=== PATIENT | male | born 1930 | race Caucasian/White ===

== ENCOUNTER → 2016-08-29 | Day surgery (SDC) | payer OTHER ==
[~2016-08-29] VITALS: Ht 180.3 cm; Wt 78.0 kg
[~2016-08-29] MED LIST: AMPICILLIN500 MG PO; ARICEPT10 M1 PO; ASPIRIN325 MG PO; CENTRUM SILVER1 TA1 PO; CEPHALEXIN500 M1 PO; FUROSEMIDE40 MG PO; HYDR25T PO; KLOR-CON 1010 MEQ PO; LISINOPRIL AND1 TA2 PO; LISINOPRIL HCTZ1 TA1 PO; LISINOPRIL HCTZ1 TAB PO; LISINOPRIL20 MG PO; LOPRESSOR25 MG PO; SIMVASTATIN40 MG PO; STOOL SOFTENER100 M1 PO; SYNTHROID,LEVO50 MCG PO; SYNTHROID0.05 MG PO; Synthroid,Levo50 MCG PO; VITAMIN B122500 MCG SL; VITAMIN C500 M4 PO; [UNRECOGNIZED DRUG - REMARK]
--- NOTE | ~2016-08-29 | WILSON ---
[place], [place] [id number] #: [id number] ROOM: DOCTOR: SULTANA MENENDEZ MD DATE: 08/29/16 PREOPERATIVE DIAGNOSIS: Cataract, right eye. POSTOPERATIVE DIAGNOSIS: Cataract, right eye. OPERATION: Extracapsular cataract extraction by phacoemulsification with posterior chamber intraocular lens implantation, right eye. ANESTHESIA: Monitored standby. OPERATIVE FINDINGS AND PROCEDURE: 2% Xylocaine topical anesthetic gel was applied to the eye in the preop area. The patient was taken to the operating room and prepped and draped in the standard fashion for sterile intraocular surgery. A time out procedure was performed verifying correct patient, correct site and corrects lens with Zev Menendez M.D. The operating microscope was swung into position and the lid speculum was inserted. Using a paracentesis blade, a paracentesis was made through clear cornea. Viscoelastic was used to fill the anterior chamber. Using a metal keratome a 2.4 mm self-sealing clear corneal cataract incision was made temporally at the limbus. Using a pre-bent 25 gauge cystotome needle, a standard continuous curvilinear capsulorrhexis was performed. The anterior capsule was removed with forceps. The lens nucleus was hydrodissected and phacoemulsified in the posterior chamber. Cortical material was removed with the irrigation aspiration hand piece and the posterior capsule was then polished with a curet under irrigation. The posterior chamber and capsular bag were filled with viscoelastic. A posterior chamber intraocular lens manufactured by: Jose Alberto, Model #[id number], and 18.5 diopters in strength was then inserted into the posterior chamber and within the capsular bag using the lens cartridge and injector system. Viscoelastic was removed using the irrigation aspiration handpiece. The anterior chamber was filled with balanced salt solution through the paracentesis. Both the paracentesis site and cataract incisions were hydrated with BSS and verified to be water-tight and self-sealing. Cefuroxime 1 mg/0.1 mL was injected into the anterior chamber through the paracentesis site. The incision checked to be water-tight using a Weck-edu sponge. The integrity of the cataract wound and ocular tension were checked. Lid speculum and drapes were removed. One drop of Ocuflox was applied to the eye. The patient was transferred from the operating room to the recovery room in satisfactory condition. SULTANA CERNA MD CM:OPRECORD:CATARACT EXTRACTION 06 [id number] SULTANA MENENDEZ MD 08/30/16 1220 DAVEY SANTOS.R
[2016-08-29 11:32] VITALS: BP 188/75
[2016-08-29 12:44] VITALS: BP 137/70
[2016-08-29 12:59] VITALS: BP 123/68
[2016-08-29 13:14] VITALS: BP 121/61
== END | disposition home or self-care (01) ==
LOC: SDC 08-24 09:30
DX: H26.9 Unspecified cataract (principal); I25.10 Atherosclerotic heart disease of native coronary artery without angina pectoris; I10 Essential (primary) hypertension; I25.2 Old myocardial infarction; Z95.1 Presence of aortocoronary bypass graft; Z90.49 Acquired absence of other specified parts of digestive tract; E89.0 Postprocedural hypothyroidism; Z82.49 Family history of ischemic heart disease and other diseases of the circulatory system; Z98.890 Other specified postprocedural states

== ENCOUNTER → 2016-09-26 | Day surgery (SDC) | payer OTHER ==
[~2016-09-26] VITALS: Ht 180.3 cm; Wt 78.0 kg
--- NOTE | ~2016-09-26 | O ---
[place], [place] OPERATIVE NOTE NAME: TEODORO CARTER UNIT #: [id number] ROOM: DOCTOR: SULTANA JOHNSON MD BIRTHDATE: [birth year] DOS: 09/26/2016 PREOPERATIVE DIAGNOSIS: Cataract, left eye. POSTOPERATIVE DIAGNOSIS: Cataract, left eye. OPERATION: Extracapsular cataract extraction by phacoemulsification with posterior chamber intraocular lens implantation, left eye. ANESTHESIA: Monitored standby. OPERATIVE FINDINGS AND PROCEDURE: 2% Xylocaine topical anesthetic gel was applied to the eye in the preop area. The patient was taken to the operating room and prepped and draped in the standard fashion for sterile intraocular surgery. A time out procedure was performed verifying correct patient, correct site and corrects lens with Zev Johnson M.D. The operating microscope was swung into position and the lid speculum was inserted. Using a Vanda paracentesis blade, a paracentesis was made through clear cornea. Viscoelastic was used to fill the anterior chamber. Using a metal keratome a 2.4 mm self-sealing clear corneal cataract incision was made temporally at the limbus. Using a pre-bent 25 gauge cystotome needle, a standard continuous curvilinear capsulorrhexis was performed. The anterior capsule was removed with forceps. The lens nucleus was hydrodissected and phacoemulsified in the posterior chamber. Cortical material was removed with the irrigation aspiration hand piece and the posterior capsule was then polished with a curet under irrigation. The posterior chamber and capsular bag were filled with viscoelastic. A posterior chamber intraocular lens manufactured by: Jose Alberto, Model #[id number], and 19.0 diopters in strength were then inserted into the posterior chamber and within the capsular bag using the lens cartridge and injector system. Viscoelastic was removed using the irrigation aspiration handpiece. The anterior chamber was filled with balanced salt solution through the paracentesis. Both the paracentesis site and cataract incisions were hydrated with BSS and verified to be water-tight and self-sealing. Cefuroxime 1 mg/0.1 mL was injected into the anterior chamber through the paracentesis site. The incision checked to be water-tight using a Weck-Heather sponge. The integrity of the cataract wound and ocular tension were checked. Lid speculum and drapes were removed. The patient was transferred from the operating room to the recovery room in satisfactory condition. [place], [place] OPERATIVE NOTE NAME: TEODORO CARTER UNIT #: [id number] ROOM: DOCTOR: SULTANA JOHNSON MD BIRTHDATE: [birth year] SULTANA JOHNSON MD CM:OPRECORD:OPERATIVE NOTE 1350 [id number] SULTANA JOHNSON MD 09/26/16 1458 interface
[2016-09-26 08:45] VITALS: BP 135/71
[2016-09-26 10:19] VITALS: BP 105/61
[2016-09-26 10:34] VITALS: BP 122/68
[2016-09-26 10:49] VITALS: BP 106/63
== END | disposition home or self-care (01) ==
LOC: SDC 09-21 11:00
DX: H26.9 Unspecified cataract (principal); I25.2 Old myocardial infarction; I25.10 Atherosclerotic heart disease of native coronary artery without angina pectoris; I10 Essential (primary) hypertension; Z87.891 Personal history of nicotine dependence; Z95.1 Presence of aortocoronary bypass graft; Z79.899 Other long term (current) drug therapy

== ENCOUNTER → 2017-09-02 | Outpatient (CLI) | payer OTHER | END | disposition home or self-care (01) | LOC: RAD 14:37 | DX: M48.56XA Collapsed vertebra, not elsewhere classified, lumbar region, initial encounter for fracture (principal) ==

== ENCOUNTER 2018-12-27 16:49 | Inpatient (IN) | payer MEDICARE, OTHER ==
[~2018-12-27] VITALS: Ht 175.2 cm; Wt 69.9 kg
[2018-12-27 16:53] VITALS: BP 163/69
[2018-12-27 17:32] LABS: BASO # 0.3 10*3/uL (0.0-0.1); BASO % 3.5 % (0.0-1.0); EOS # 0.1 10*3/uL (0.0-0.4); EOS % 1.5 % (1.0-4.0); HEMATOCRIT 52.8 % (42.0-52.0); HEMOGLOBIN 15.6 g/dl (14.0-18.0); LYMPH # 0.6 10*3/uL (1.3-4.4); LYMPH % 7.5 % (27.0-41.0); MEAN CELL VOLUME 92.6 fl (80.0-94.0); MEAN CORPUSCULAR HGB 27.4 pg (27.0-31.0); MEAN CORPUSCULAR HGB CONC 29.5 g/dl (33.0-37.0); MEAN PLATELET VOLUME 9.1 fl (9.6-12.3); MONO # 0.5 10*3/uL (0.1-1.0); MONO % 5.6 % (3.0-9.0); NEUT # 6.9 10*3/uL (2.3-7.9); NEUT % 80.6 % (47.0-73.0); PLATELET COUNT AUTOMATED 496 10*3/uL (130-400); RED CELL DISTRI WIDTH 28.5 % (0-14.5); WHITE BLOOD COUNT 8.5 10*3/uL (4.8-10.8)
[2018-12-27 17:41] LABS: BILIRUBIN NEGATIVE (NEGATIVE); BLOOD NEGATIVE (NEGATIVE); CLARITY CLEAR (CLEAR); COLOR YELLOW (YELLOW); GLUCOSE NEGATIVE (NEGATIVE); KETONE NEGATIVE (NEGATIVE); LEUKO ESTERASE NEGATIVE (NEGATIVE); NITRITE NEGATIVE (NEGATIVE); PH 5.5 (5.0-9.0); UROBILINOGEN 0.2 E.U./dl (0.2-1.0)
[2018-12-27 17:42] LABS: ACT PARTIAL THROMBO TIME 31.9 SECONDS (20.0-32.1); INTERNATIONAL NORM RATIO 1.1 (2.0-3.5)
[2018-12-27 17:44] LABS: CREATININE 1.37 mg/dL (0.70-1.30)
[2018-12-27 17:48] LABS: EPITHELIAL CELLS 0-2; HYALINE CAST TNTC; WBC 0-2 wbc/hpf (0-5)
[2018-12-27 17:49] LABS: BACTERIA 1+
[2018-12-27 18:00] VITALS: BP 162/70
[2018-12-27 19:10] VITALS: BP 164/68
[2018-12-27 20:07] VITALS: BP 163/68
[2018-12-27 20:47] VITALS: BP 162/68
[2018-12-27 20:55] VITALS: BP 179/74
--- NOTE | 2018-12-27 20:55 | NUR ---
A 88, admitted to , under the services of SAUL Blackburn DO with a diagnosis of TRAUMATIC COMPRESSION FRACTURE OF 10TH THORACIC VERTEBRA, TRAUMATIC COMPRESSION FRACTURE OF 3RD LUMBAR VERTEBRA. Chief complaint is FALL. Patient arrived via bed from ER. Monitor applied. Initial assessment completed. Vital signs taken and recorded. SAUL BLACKBURN DO notified of admission to the unit. Orders received. See assessment for past medical history, medications and allergies. Patient and/or family oriented to unit. [facility] visitation policy reviewed. Clothing/patient valuable form completed. JAQUI KRISHNAN
[2018-12-27] MEDS ORDERED: HYDROXYUREA500 MG PO (21:14)
--- NOTE | 2018-12-27 22:00 | NUR ---
NOTIFIED DR LOPEZ THAT PT MED REC IS UPDATED PER FAMILY AND PATIENT. ALSO NOTIFIED PHYSICIAN THAT PT IS ANXIOUS. ORDER RECEIVED FOR ATIVAN 0.5 MG PO EVERY 6 HOURS NEEDED.
[2018-12-28] VITALS: BP 138/64; BP 154/69
--- NOTE | 2018-12-28 02:30 | NUR ---
PT TRANSFERRED TO AND FROM BEDSIDE COMMODE WITH ASSIST OF NURSE AND PATIENT ATTENDANT. PT C/O PAIN AFTER RETURNING TO BED AT THIS TIME. NORCO GIVEN FOR PAIN. WILL MONITOR FOR EFFECTIVENESS. ALL SAFETY MEASURES IN PLACE, HOB ELEVATED PER WISHES OF PATIENT. CALL LIGHT IN REACH.
--- NOTE | 2018-12-28 03:30 | NUR ---
LUCILLE EFFECTIVE PER PT.
--- NOTE | 2018-12-28 06:48 | NUR ---
ATTEMPTED TO CALL CONSULT TO DR LI CELL [facility] CALL WENT TO [facility]. MESSAGE LEFT REGARDING CONSULTS ON 4TH FLOOR, 4TH FLOOR NUMBER LEFT ON [employer] WITH REQUEST FOR PHYSICIAN TO RETURN CALL. AWAITING CALL AT THIS TIME.
[2018-12-28 06:58] LABS: BASO # 0.3 10*3/uL (0.0-0.1); BASO % 3.1 % (0.0-1.0); EOS # 0.1 10*3/uL (0.0-0.4); EOS % 1.2 % (1.0-4.0); HEMATOCRIT 48.5 % (42.0-52.0); HEMOGLOBIN 14.6 g/dl (14.0-18.0); LYMPH # 0.7 10*3/uL (1.3-4.4); LYMPH % 9.1 % (27.0-41.0); MEAN CORPUSCULAR HGB 27.7 pg (27.0-31.0); MEAN CORPUSCULAR HGB CONC 30.1 g/dl (33.0-37.0); MEAN PLATELET VOLUME 9.2 fl (9.6-12.3); MONO # 0.6 10*3/uL (0.1-1.0); NEUT # 6.4 10*3/uL (2.3-7.9); PLATELET COUNT AUTOMATED 456 10*3/uL (130-400); RED BLOOD COUNT 5.27 10*6/uL (4.50-5.90); RED CELL DISTRI WIDTH 28.3 % (0-14.5); WHITE BLOOD COUNT 8.2 10*3/uL (4.8-10.8)
[2018-12-28 07:24] LABS: ALBUMIN 3.3 gm/dl (3.1-4.5); ALKALINE PHOSPHATASE 78 U/L (45-117); BUN 28 mg/dl (7-24); CHLORIDE 110 mmol/L (98-107); CHOLESTEROL 96 mg/dL (<200); CREATININE 1.29 mg/dL (0.70-1.30); HDL CHOLESTEROL 29 mg/dl (40-60); LDL CHOLESTEROL 46 mg/dL (9-159); PHOSPHOROUS 2.8 mg/dL (2.5-4.9); POTASSIUM 3.5 mmol/L (3.5-5.1); SGOT/AST 20 IU/L (3-35); SGPT/ALT 18 U/L (12-78); SODIUM 144 mmol/L (136-145); TOTAL PROTEIN 6.3 gm/dL (6.4-8.2); TRIGLYCERIDES 106 mg/dl (<150); VLDL CHOLESTEROL 21 mg/dL (6-40)
--- NOTE | 2018-12-28 07:45 | NUR ---
24 HOUR CHART CHECK COMPLETED
--- NOTE | 2018-12-28 07:47 | NUR ---
DR. LI NOTIFIED AT THIS TIME OF CONSULT, NO ORDERS AT THIS TIME.
[2018-12-28 08:00] VITALS: BP 150/67
[2018-12-28 08:14] LABS: VITAMIN D, 25-HYDROXY 34.3 ng/mL (30-100)
--- NOTE | 2018-12-28 08:20 | NUR ---
PATIENT ASSESSMENT COMPLETED AT THIS TIME WITHOUT INCIDENT, FAMILY AT BEDSIDE. PATIENT DENIED ANY PAIN, CHEST PAIN OR SHORTNESS OF BREATH AT THIS TIME. MEDICAITONS GIVEN ORALLY WITHOUT INCIDENT, PATIENT EATING BREAKFAST AT THIS TIME. CALL LIGHT WITHIN REACH, WILL CONTINUE TO MONITOR,
[2018-12-28 12:00] VITALS: BP 138/67
--- NOTE | 2018-12-28 12:29 | NUR ---
PHYSICAL THERAPY PT EVAL COMPLETED TODAY: FULL EVALUATION TO FOLLOW. RECOMMEND PT WHILE HERE TO ADDRESS DECREASED FUNCTIONAL MOBILITY. PT EVAL IS MODERATE COMPLEXITY: [id number]. D/C RECOMMENDATIONS AT THIS TIME BASED ON EVAL IS TO RETURN TO HOME WITH FAMILY SUPPORT AND RESUMPTION OF HOME HEALTH SERVICES. THANK YOU FOR REFERRAL URI DOLAN PT
[2018-12-28] MEDS ORDERED: METOPROLOL TART50 M1 PO (13:11)
[2018-12-28] MEDS ORDERED: VITAMIN B121000 MC1 PO (13:12)
[2018-12-28] MEDS ORDERED: ECOTRIN81 M1 PO (13:13)
--- NOTE | 2018-12-28 13:55 | NUR ---
NORCO GIVEN AT THIS TIME FOR COMPLAINT OF PAIN IN BACK AT A 09/03. PATIENT STATED THAT HIS BACK HURT WORSE AFTER SITTING IN THE RECLINER. CALL LIGHT WITHIN REACH, FAMILY AT BEDSIDE. WILL CONTINUE TO MONITOR.
--- NOTE | 2018-12-28 14:40 | NUR ---
PATIENT STATED THAT PAIN WAS UNCHANGED FROM EARLIER WAS STILL A 7/10 BUT THAT HE WOULD WAIT A LITTLE LONGER AND GIVE THE MEDICINE A BIT LONGER TO WORK. CALL LIGHT WITHIN REACH,
--- NOTE | 2018-12-28 14:50 | NUR ---
WOUND DRESSINGS APPLIED ORDERED TO LEFT LATERAL ELBOW AND POSTERIOR OCCIPITAL AREA OF HEAD. SEE WOUND TREATMENT ORDERS.
[2018-12-28 16:00] VITALS: BP 140/64
--- NOTE | 2018-12-28 16:30 | NUR ---
PATIENT MEDICATED WITH TYLENOL AT THIS TIME FOR CONTINUING COMPLAINT OF LOWER BACK PAIN OF 5/10. SEE EMAR AND DOCUMENTATION.
--- NOTE | 2018-12-28 17:15 | NUR ---
REASSESSED AT THIS TIME FOR EFFECT OF TYLENOL PATIENT STATED PAIN WAS NOW A 4/10 A THIS TIME.
[2018-12-28 20:00] VITALS: BP 149/66
--- NOTE | 2018-12-28 20:45 | NUR ---
Patient resting quietly with no c/o discomfort. Respirations easy and regular. Vital signs stable. No overt distress. Continue to monitor the pt. MEGAN BILLY
[2018-12-29] VITALS: BP 131/72
--- NOTE | 2018-12-29 04:00 | NUR ---
SLEEPING, NO DISTRESS NOTED. CALL LIGHT WITHIN REACH
--- NOTE | 2018-12-29 04:20 | NUR ---
24 HR chart check completed.
[2018-12-29 08:00] VITALS: BP 166/72
--- NOTE | 2018-12-29 08:00 | NUR ---
IN TO ROOM. PATIENT AWAKE, ALERT AND ORIENTED. PLEASANT AND COOPERATIVE WITH CARE. NO STATED COMPLAINTS AT THIS TIME. NO S/S OF DISTRESS OR SOB NOTED. BED IN LOWEST LOCKED POSITION AND CALL LIGHT WITHIN REACH. BED ALARM ON.
--- NOTE | 2018-12-29 09:00 | NUR ---
Brake Repairer Bus in to talk to patient. Patient states lives at home with and grandson. There are few steps in the home. Physician: den [facility]acy: [facility] Patient's level of ADLs: MINIMAL ASSIST Patient has working utilities: all working DME: none Follow-up physician's appointment after d/c: will be made by hospitalist nurse director upon discharge Does patient want to access PORTAL?: no Discharge plan discussed with patient, he states he lives at home with and grandson, he is independent in adls and requires minimal assistance with ambulation, he stated he has [facility] services currently in place at home, patient states he will return home when medically stable. NILESH BONILLA
--- NOTE | 2018-12-29 09:56 | NUR ---
TEODORO CARTER [id number] Please refer to the physician's history and physical for past medical history, comorbid conditions, and allergies. Diagnosis: TRAUMATIC COMPRESSION FX TENTH THORACIC VERTEBRA Gómez Score: 19,LOW OR NO RISK WOUND DESCRIPTIONS: Wound Number: 1 Location of the wound: left elbow Type of wound: skin tear Thickness: Partial Size: 1.5cm x 0.5cm x 0.1cm Tunneling: none Undermining: none Sinus Tract: none Presence of Exudate: Serosanguineous Amount: Light Color: Red Odor: None Periwound Skin Appearance: Normal Wound edges: approximated with 2 steristripts Pain (associated with wound): none at time of assessment How does patient state this happened? pt stated this happened at home from a fall Wound Number: 2 Location of the wound: forehead Type of wound: traumatic Thickness: Partial Size: 2.2cm x 0.3cm x 0.1cm Tunneling: none Undermining: none Sinus Tract: none Presence of Exudate: Serosanguineous Amount: Light Color: Red Odor: None Periwound Skin Appearance: Normal Wound edges: approximated Pain (associated with wound): none at time of assessment How does patient state this happened? pt stated this happened at home from a fall Wound Number: 3 Location of the wound: posterior scalp Type of wound: traumatic Thickness: Partial Size: 1.0cm x 0.6cm x 0.1cm Tunneling: none Undermining: none Sinus Tract: none Presence of Exudate: Serosanguineous Amount: Light Color: Red Odor: None Periwound Skin Appearance: Normal Wound edges: approximated Pain (associated with wound): none at time of assessment How does patient state this happened? pt stated this happened at home from a fall Surface the patient is resting on: Isoflex SKIN PREVENTION RECOMMENDATION: 1. Pressure redistribution support surface as appropriate 2. Elevate heels 3. Remove boots/TEDS every shift and reapply 4. Head of bed 30 degrees as tolerated 5. Assess nutrition and hydration 6. Manage moisture 7. Avoid the use of containment devices while in bed 8. Use absorptive products on surfaces limit layers of linens on bed 9. Turn and reposition every 1-2 hours in bed and every 1 hour in chair as tolerated 10. Weight shifts every 15 minutes while up in chair 11. Offloading with pillows or device to keep heels elevated off bed 12. Monitor skin at least every shift 13. Inspect under medical devices twice a day WOUND TREATMENT RECOMMENDATIONS: Maintain steristripts to left elbow until they fall off. D/C skin tear guidelines Partial thickness guidelines: Cleanse forehead with nss and apply sureprep around the wound therahoney to wound bed and cover with bandaid daily and prn for soiling. Partital thickness guidelines: Cleanse posterior scalp with nss and apply sureprep around the wound therahoney to wound bed and cover with optifoam gentle daily and prn for soiling.
--- NOTE | 2018-12-29 13:47 | NUR ---
Patient not available for Occupational Therapy evaluation as he is out of his room for an MRI. Feli Erwin OTR/l
[2018-12-29 16:00] VITALS: BP 148/73
[2018-12-29 20:00] VITALS: BP 130/60
--- NOTE | 2018-12-29 22:33 | NUR ---
PATIENT REQUESTING TYLENOL TO HELP HIM SLEEP. ADMINISTERED PRESCRIBED. WILL MONITOR FOR EFFECTIVENESS.
--- NOTE | 2018-12-29 23:33 | NUR ---
PATIENT RESTING WITH EYES CLOSED AT THIS TIME. BED ALARM ON AND CALL LIGHT WITHIN REACH. WILL MONITOR.
[2018-12-30] VITALS: BP 154/80
--- NOTE | 2018-12-30 05:11 | NUR ---
24 HR chart check completed.
[2018-12-30 08:00] VITALS: BP 132/80
--- NOTE | 2018-12-30 08:36 | NUR ---
Dr. Hamilton notified of wound care recommendations.
[2018-12-30] MEDS ORDERED: HYDROCODONE-AC1 EAC1 PO (10:21)
--- NOTE | 2018-12-30 11:00 | NUR ---
PHYSICAL THERAPY Patient seen this am 1;1 for therapy visit and was resting supine in bed upon therapist arrival. Patient identified by name / and reports 6/10 mid back pain. Patient stated he had just returned from the bathroom and did not feel up to walking again so soon. Patient however agreed to and completed supine to sit EOB transfer with TK Gr. Patient tolerated EOB sit SBA and was able to complete seated B LE therex, all planes, x 20 reps each to increase LE strength. Patient returned to supine in bed and remained with call light, tray table, telephone and bed alarm for safety. Will continue per POC as tolerated, total treatment time 14 minutes. Ralph Chopra, PACKAGE DYE STAND LOADER
[2018-12-30 12:00] VITALS: BP 143/71
--- NOTE | 2018-12-30 12:05 | NUR ---
case management visits with patient, again discussed with him a discharge plan, he stated he would be returning home when medically stable and will continue [facility], case management will set a resume order to [facility] when medically stable
--- NOTE | 2018-12-30 14:52 | NUR ---
[facility] notified that patient is being discharged to home today
--- NOTE | 2018-12-30 15:45 | NUR ---
Discharge instructions reviewed with patient/family. Patient receptive and verbalizes understanding. Follow-up care arranged. Written instructions given to patient/family. ROMINA SOMMERS
--- NOTE | 2018-12-31 08:02 | NUR ---
PHYSICAL THERAPY CO-SIGN I approve of the Physical Therapy notes written above. Tootie Wise, PT, DPT
== END 2018-12-30 15:45 | disposition home health service (06) | DRG 982 ==
LOC: ED 16:49 → 4E 20:08 → EDHOLD 20:08 → 4E 20:32
PROVIDERS: Emergency Medicine; Student in an Organized Health Care Education/Training Program; ADMIT Family Medicine
PROC: 0XQCXZZ Repair Left Elbow Region, External Approach (ICD-10-PCS; principal; 2018-12-27)
DX: S22.070A Wedge compression fracture of T9-T10 vertebra, initial encounter for closed fracture (principal); S32.039A Unspecified fracture of third lumbar vertebra, initial encounter for closed fracture; S32.019A Unspecified fracture of first lumbar vertebra, initial encounter for closed fracture; I25.810 Atherosclerosis of coronary artery bypass graft(s) without angina pectoris; S22.089A Unspecified fracture of T11-T12 vertebra, initial encounter for closed fracture; S51.012A Laceration without foreign body of left elbow, initial encounter; C44.41 Basal cell carcinoma of skin of scalp and neck; I71.4 Abdominal aortic aneurysm, without rupture; E89.0 Postprocedural hypothyroidism; M51.26 Other intervertebral disc displacement, lumbar region; N18.3 Chronic kidney disease, stage 3 (moderate); R73.9 Hyperglycemia, unspecified; I13.10 Hypertensive heart and chronic kidney disease without heart failure, with stage 1 through stage 4 chronic kidney disease, or unspecified chronic kidney disease; R00.1 Bradycardia, unspecified; D47.3 Essential (hemorrhagic) thrombocythemia; S22.020A Wedge compression fracture of second thoracic vertebra, initial encounter for closed fracture; W18.39XA Other fall on same level, initial encounter; Y93.89 Activity, other specified; Y92.89 Other specified places as the place of occurrence of the external cause; Y99.8 Other external cause status; I25.2 Old myocardial infarction; Z95.1 Presence of aortocoronary bypass graft; Z79.82 Long term (current) use of aspirin; Z79.899 Other long term (current) drug therapy; Z90.49 Acquired absence of other specified parts of digestive tract; Z95.5 Presence of coronary angioplasty implant and graft; Z98.49 Cataract extraction status, unspecified eye; Z87.891 Personal history of nicotine dependence; Z82.49 Family history of ischemic heart disease and other diseases of the circulatory system; Z86.73 Personal history of transient ischemic attack (TIA), and cerebral infarction without residual deficits; Z83.3 Family history of diabetes mellitus; Z82.0 Family history of epilepsy and other diseases of the nervous system

== ENCOUNTER 2021-11-27 05:19 | Emergency (ER) | payer OTHER ==
[~2021-11-27] VITALS: Ht 177.8 cm; Wt 66.4 kg
[~2021-11-27 05:19] MED LIST changes: +CLONIDINE1 EACH T; +ECOTRIN81 M1 PO; +ENOXAPARIN80 MG/0.2 SC; +HYDROCODONE-AC1 EAC1 PO; +HYDROXYUREA500 MG PO; +KLOR-CON 1010 ME1 PO; -KLOR-CON 1010 MEQ PO; +LISINOPRIL-HCT1 EACH PO; +Lopressor IV; +Lopressor25 MG PO; +METOPROLOL TART50 M1 PO; +NOVAPLUS LEVO100 MCG IV; -STOOL SOFTENER100 M1 PO; +STOOL SOFTENER100 M3 PO; +TUBERSOL1 M1 PO; +VITAMIN B121000 MC1 PO; +VITAMIN E400 UNIT PO
[2021-11-27 06:13] LABS: HEMATOCRIT 32.6 % (42.0-52.0); MEAN CELL VOLUME 120.3 fl (80.0-94.0); MEAN CORPUSCULAR HGB CONC 31.6 g/dl (33.0-37.0); MEAN PLATELET VOLUME 10.1 fl (9.6-12.3); PLATELET COUNT AUTOMATED 295 10*3/uL (130-400); RED BLOOD COUNT 2.71 10*6/uL (4.50-5.90); WHITE BLOOD COUNT 16.5 10*3/uL (4.8-10.8)
[2021-11-27 06:14] LABS: MANUAL DIFF REFLEX YES
[2021-11-27 06:24] LABS: ALKALINE PHOSPHATASE 78 U/L (45-117); BUN 24 mg/dl (7-24); CHLORIDE 111 mmol/L (98-107); CREATININE 1.08 mg/dL (0.70-1.30); POTASSIUM 4.3 mmol/L (3.5-5.1); SGOT/AST 21 IU/L (3-35); SGPT/ALT 20 U/L (12-78); SODIUM 141 mmol/L (136-145); TOTAL PROTEIN 6.1 gm/dL (6.4-8.2)
[2021-11-27 06:57] LABS: BASOPHILS 2 % (0-1); OVALOCYTES FEW; PLATELET SUFFICIENCY NORMAL (NORMAL); POLYCHROMASIA SLIGHT; TOTAL CELLS COUNTED 100 #CELLS; TOXIC GRANULATION SLIGHT
[2021-11-27] MEDS ORDERED: Synthroid,Levo25 MCG PO (08:35)
[2021-11-27] MEDS ORDERED: REGLAN10 M1 PO (08:35)
[2021-11-27] MEDS ORDERED: ELIQUIS2.5 M1 PO (08:36)
[2021-11-27 10:18] LABS: BILIRUBIN Negative (Negative); BLOOD Negative (Negative); CLARITY Clear (Clear); COLOR Yellow (Yellow); GLUCOSE Negative (Negative); KETONE Negative (Negative); LEUKO ESTERASE Negative (Negative); NITRITE Negative (Negative); SPECIFIC GRAVITY >= 1.030 (1.001-1.030)
[2021-11-27 11:10] VITALS: BP 72/50
== END 2021-11-27 11:10 | disposition short-term general hospital (02) ==
LOC: ED 05:19
PROVIDERS: Emergency Medicine
DX: I71.33 Infrarenal abdominal aortic aneurysm, ruptured (principal); I25.10 Atherosclerotic heart disease of native coronary artery without angina pectoris; I25.2 Old myocardial infarction; E03.9 Hypothyroidism, unspecified; I13.0 Hypertensive heart and chronic kidney disease with heart failure and stage 1 through stage 4 chronic kidney disease, or unspecified chronic kidney disease; N18.30 Chronic kidney disease, stage 3 unspecified; E78.00 Pure hypercholesterolemia, unspecified; Z79.899 Other long term (current) drug therapy; Z90.49 Acquired absence of other specified parts of digestive tract; Z98.890 Other specified postprocedural states; Z90.89 Acquired absence of other organs; Z87.891 Personal history of nicotine dependence